=== PATIENT | male | born 1950 | race Caucasian/White ===

== ENCOUNTER → 2020-05-01 | Outpatient (CLI) | payer BC, MEDICARE ==
--- NOTE | 2020-05-01 15:58 | XR ---
EXAMINATION TYPE: XR foot complete RT DATE OF EXAM: 05/01/2020 COMPARISON: NONE HISTORY: Pain TECHNIQUE: Three views are submitted. FINDINGS: The osseous structures are intact. There is no acute fracture or dislocation. Tiny plantar calcaneal root. Mild narrowing of the first MTP. IMPRESSION: 1. No acute fracture or dislocation. If symptoms persist, follow-up exam in 7 to 10 days could be ob tained.
== END | disposition home or self-care (01) ==
LOC: RADXRMAIN 15:37
PROVIDERS: ATTEND Podiatrist Foot Surgery
DX: M20.11 Hallux valgus (acquired), right foot (principal)

== ENCOUNTER 2024-03-09 10:12 | Day surgery (SDC) | payer BC, MEDICARE ==
[2024-03-03 17:17] VITALS: BMI 17.2
[2024-03-09 10:50] VITALS: TEMP 98.1
[2024-03-09] MEDS: IV FLUID CONTINUATION 1,000 ML IV ONE (10:57)
[2024-03-09] MEDS: LACTATED RINGERS 1,000 ML IV SCH (10:58)
[2024-03-09 11:03] LABS: Glucose,Whole Blood 97 mg/dL (70-110)
[2024-03-09] MEDS ORDERED: PROPOFOL 10 MG/ML 20 ML VIAL IV ONE (11:14)
[2024-03-09] MEDS ORDERED: LIDOCAINE 1% INJ 10MG/ML (20 ML MDV) ONE (11:14)
--- NOTE | 2024-03-09 11:18 | P.GSHP ---
History of Present Illness H&P Date: 03/09/24 Chief Complaint: Colon cancer screening 74-year-old male here for colonoscopy. Last colonoscopy 15 years ago or so. No family history of colon cancer. No bowel complaints. Past Medical History Past Medical History: Hypertension, Neurologic Disorder Additional Past Medical History / Comment(s): MIGRAINES, SEASONAL ALLERGIES History of Any Multi-Drug Resistant Organisms: None Reported Past Surgical History: Adenoidectomy, Hernia Repair, Tonsillectomy Additional Past Surgical History / Comment(s): COLONOSCOPY Past Anesthesia/Blood Transfusion Reactions: No Reported Reaction Smoking Status: Former smoker - Past Family History Father Family Medical History: Cancer Mother Family Medical History: Cancer Sister(s) Family Medical History: Cancer Additional Family Medical History / Comment(s): SEVERAL SISTERS HAD CANCER Medications and Allergies Home Medications Medication Instructions Recorded Confirmed Type Acetaminophen [Tylenol Extra 500 mg PO DAILY PRN 03/03/24 03/03/24 History Strength] Acetylcysteine [Nac] 500 mg PO DAILY 03/03/24 03/03/24 History Ascorbic Acid [Vitamin C] 1,000 mg PO DAILY 03/03/24 03/03/24 History Cetirizine HCl [Zyrtec] 10 mg PO DAILY 03/03/24 03/03/24 History Cholecalciferol [Vitamin D3 (125 125 mcg PO DAILY 03/03/24 03/03/24 History Mcg = 5000 Iu)] Cimetidine [Tagamet Hb] 200 mg PO DAILY PRN 03/03/24 03/03/24 History Cyclobenzaprine [Flexeril] 10 mg PO BID 03/03/24 03/03/24 History Fish Oil/Dha/Epa [Fish Oil 1,200 1 each PO DAILY 03/03/24 03/03/24 History mg Fish Oil] Gabapentin [Neurontin] 300 mg PO TID 03/03/24 03/03/24 History Metoprolol Succinate (ER) [Toprol 25 mg PO DAILY 03/03/24 03/09/24 History Xl] Quercetin W/[place] 1 tab PO DAILY 03/03/24 History Zinc Balance W/[place] 1 tab PO DAILY 03/03/24 History Allergies Allergy/AdvReac Type Severity Reaction Status Date / Time No Known Allergies Allergy Verified 03/09/24 10:40 Surgical - Exam Vital Signs Temp Pulse Resp BP Pulse Ox 98.1 F 128 H 18 122/76 98 03/09/24 10:47 03/09/24 10:47 03/09/24 10:47 03/09/24 10:47 03/09/24 10:47 Physical exam: General: Well-developed, thin appearing HEENT: Normocephalic, sclerae nonicteric Abdomen: Nontender, nondistended Extremities: No edema Neuro: Alert and oriented Assessment and Plan (1) Colon cancer screening Narrative/Plan: Will proceed with colonoscopy at this time. Current Visit: Yes Status: Acute Code(s): Z12.11 - ENCOUNTER FOR SCREENING FOR MALIGNANT NEOPLASM OF COLON SNOMED Code(s): 963483169
--- NOTE | 2024-03-09 11:29 | P.PCN ---
Date of Procedure: 03/09/24 Procedure(s) Performed: PREOPERATIVE DIAGNOSIS: Colon cancer screening POSTOPERATIVE DIAGNOSIS: Diverticulosis PROCEDURE: Colonoscopy ANESTHESIA: MAC SURGEON: Jose Alberto Villa M.D. SPECIMENS: None ENDOSCOPIC PROCEDURE: The patient was placed on the endoscopy table in the left decubitus position. The Olympus colonoscope was inserted into the anus and passed under direct visualization to the base of the cecum. The appendiceal orifice was visualized. From that point the scope was slowly withdrawn inspe cting all surfaces carefully. There were no neoplastic inflammatory or polypoid lesions throughout the cecum, ascending, transverse, descending, sigmoid and rectum. There was scattered diverticulosis noted throughout the colon. Digital rectal examination was normal. The patient was taken to the recovery room in stable condition per anesthesia guidelines. RECOMMENDATIONS: Resume diet.
[2024-03-09 12:04] VITALS: BP 121/73; PULSE 75; RESP 16
== END 2024-03-09 12:23 | disposition home or self-care (01) ==
LOC: ORWHC2ENDO 10:12
PROVIDERS: ATTEND Surgery
DX: Z12.11 Encounter for screening for malignant neoplasm of colon